=== PATIENT | female | born 1985 | race Caucasian/White ===

== ENCOUNTER 2016-10-02 23:00 | Emergency (ER) | payer OTHER ==
[~2016-10-02 23:00] MED LIST: VENTOLIN HFA18 GM INH
[2016-10-02 23:05] VITALS: BP 112/76
--- NOTE | 2016-10-02 23:59 | ED GENERAL ADULT ---
History of Present Illness General Chief Complaint: General Adult Stated Complaint: ?LUMP ON HEAD/NECK Source: patient, old records Exam Limitations: no limitations Vital Signs & Intake/Output Vital Signs & Intake/Output Vital Signs Date Time Temp Pulse Resp B/P B/P Pulse O2 O2 Flow FiO2 Mean Ox Delivery Rate 10/02 2305 98.4 80 20 112/76 ED Intake and Output 10/03 0000 10/02 1200 Intake Total Output Total Balance Patient 130 lb Weight Allergies Coded Allergies: shellfish derived (Severe, HIVES 10/03/16) Reconcile Medications Albuterol Sulfate (Ventolin Hfa) 18 GM HFA.AER.AD 2 PUF INH Q4-6 PRN PRN ASTHMA Ibuprofen 800 MG TABLET 1 TAB PO TID pain Triage Note: PER PT OVER THE LAST 4-5 FOUND A LUMP IN BACK OF MY HEAD AND THEN ANOTHER AND ALSO GETTING SHARP STABBING PAIN TO L EAR AND FACE. HX OF CANCER IN MY FAMILY SO I AM WORRIED, BUT KEPT PUTTING IT OFF WHEN I SWALLOW I CAN FEEL IT IN MY EAR. Triage Nurses Notes Reviewed? yes Onset: Gradual Duration: week(s): (4-5), intermittent, waxing and waning Timing: recent history Injury Environment: home Severity: mild Severity Numbers: 4 No Modifying Factors: none Associated Symptoms: denies : No Patient currently breastfeeds: No HPI: 30-year-old female with history of asthma reflux presents to the ER for evaluation complaining of 4-5 week history of irritable that she first noticed the back of her left lower head and another bump to the top of her right parietal scalp. She denies any known injury or trauma. She states that the size of the lump is intermittent in nature waxing and waning in size. She has not sought care for the symptoms until this evening. The patient denies fever chills diaphoresis weight loss. She states the pain radiates to her left ear however denies specific ear pain hearing loss dizziness lightheadedness. No chest pain abdominal pain nausea vomiting. The patient became concerned given her family history of lung prostate cancer. She denies any other complaints she is not sought care for the symptoms until today. No headache no vision changes (ZAHRA ESCOBAR) Past History Travel History Traveled to [place] past 21 day No Medical History Any Pertinent Medical History? 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 No (ZAHRA ESCOBAR) Review of Systems Review of Systems Constitutional: Reports: see HPI. All Other Systems: Reviewed and Negative Comments Review of systems: See HPI, All other systems negative. Constitutional, no chills no fever, no malaise HEENT: No visual changes no sore throat no congestion, no ear pain Cardiovascular: No chest pain , no palpitation Skin: no rashes, no change in skin Respiratory: No dyspnea no cough no sputum GI: No nausea no vomiting, no diarrhea, : No dysuria Muscle skeletal: No joint pain, no joint swelling, no back pain, no neck pain, Neurologic: No numbness , no headache Psych: No stress Heme/endocrine: No bruising no bleeding Immunology: No lymphadenopathy (ZAHRA ESCOBAR) Physical Exam Physical Exam General Appearance: well developed/nourished, no apparent distress, alert Comments: Well-developed well-nourished patient in no apparent distress. Head/Face: SMALL 1CM CYST TO THE L OCCIPUT, NO ABRAsion, no erythema, Atraumatic , no maxillary/frontal sinus tenderness, no facial swelling Eyes: PERRL, EOMI, no conjunctival injection. Ear:External auditory canal and Tympanic membranes clear, no erythema, no FB. Nose: atraumatic.Normal inspection: No bleeding, no septal hematoma Throat: Moist mucous membranes.Pharynx normal No stridor/drooling or assymetry. No swelling or edema. Neck: Supple, NO ANTERIOR/POSTERIOR LYMPHADENOPATHY FROM Back: FROM Cardiovascular: Regular rate and rhythms no murmurs rubs Respiratory: Chest nontender.There were no bony deformities, no asymmetry. No respiratory distress. Patient speaking in full complete sentences. Breath sounds clear to auscultation bilaterally: NO W/R/R Extremities: full range of motion Neuro: awake, alert, and oriented to person, place and time. There were no obvious focal neurologic abnormalities. Skin: Warm & dry;No appreciable rash on exposed skin Psych: Mood affect normal, normal memory normal judgment. Core Measures ACS in differential dx? No CVA/TIA Diagnosis: No Severe Sepsis Present: No Septic Shock Present: No (ZAHRA ESCOBAR) Progress Differential Diagnoses I considered the following diagnoses in my evaluation of the patient: Lymphadenopathy abscess cyst Plan of Care: Current Medications Sig/Lucinda Start time Last Medication Dose Stop Time Status Admin Ibuprofen 600 MG ONCE ONE 10/03 14 UNVr (Motrin) 10/04 15 Patient medicated with Motrin discussed with her plan of care I discussed with the patient at length all of their results. I had an extensive conversation regarding need for close follow up with their primary care physician this week as well as return precautions. I answered all of their questions, they feel comfortable with the plan and follow-up care. (ZAHRA ESCOBAR) Initial ED EKG: none (ZAHRA ESCOBAR) Departure Departure Time of Disposition: 6 Disposition: HOME OR SELF CARE Condition: Stable Clinical Impression Primary Impression: Epidermal cyst Referrals: KENAN POWERS APRN (PCP/Family) Additional Instructions: follow up with [facility] this week. interchange tylenol and ibuprofen as discussed. return to the er with any concerns this was sent to [facility] Departure Forms: Customer Survey General Discharge Information Prescriptions: Current Visit Scripts Ibuprofen 1 TAB PO TID #30 TAB (ZAHRA ESCOBAR) PA/TUBE OPERATOR Co-Sign Statement Statement: ED Attending supervision documentation- [] I saw and evaluated the patient. I have also reviewed all the pertinent lab results and diagnostic results. I agree with the findings and the plan of care as documented in the PA's/TUBE OPERATOR's documentation. [X] I have reviewed the ED Record and agree with the PA's/TUBE OPERATOR's documentation. [] Additions or exceptions (if any) to the PAs/TUBE OPERATOR's note and plan are summarized below: [] (ALEXANDRA HAYES,JAIRO Brady) Critical Care Note Critical Care Note Critical Care Time: non-applicable (ZAHRA ESCOBAR)
[2016-10-03] MEDS ORDERED: IBUPROFEN800 M1 PO (00:08)
== END 2016-10-03 00:23 ==
LOC: ERH 23:00
DX: L72.0 Epidermal cyst (principal)